=== PATIENT | female | born 1945 | race African-American/Black ===

== ENCOUNTER 2018-01-24 08:25 | Day surgery (SDC) | payer MEDICARE ==
[~2018-01-24] VITALS: Ht 165.1 cm; Wt 90.7 kg
--- NOTE | ~2018-01-24 | OP ---
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 OPERATION PERFORMED: Ligation of AV fistula and implantation of a new Acuseal AV graft and a rainbow pattern with the arterial anastomosis distal to the brachial artery or to the stump of the cephalic vein from the previous fistula and proximally to the arterialized median antebrachial vein. SURGEON: Robi Kruse MD ANESTHESIA: Regional nerve block plus general per [employer]. PREOPERATIVE NOTE: Ms. Martinez is a 72-year-old female on chronic hemodialysis in [place]. She has an enlarging aneurysmal radiocephalic AV fistula and was referred to me for management. She is brought to the operating room at this time with plans to implant a new early stick type Acuseal PTFE loop graft in her forearm and ligate or excise the fistula or aneurysm. Under anesthesia, the patient was positioned and prepped and draped in usual manner. I examined her with ultrasound and decided on a more or less bypass procedure. I made an incision over the arterial anastomosis and exposed the cephalic vein from the radial artery anastomosis to the neck of the aneurysm and dissected this portion of the vein fully and controlled it with a Silastic loop. I made another incision more proximally and exposed the arterialized median antebrachial vein above the endovascular stent which was present. It was dissected circumferentially and also controlled with a loop. I closed the vein just proximal to the stent using a TA 30 device with blue staple load and then transected it and then did an end-to-end anastomosis of the vein to Acuseal graft with running 6-0 Prolene and then flushed the graft and vein with heparinized saline, treated the suture line with BioGlue and then placed the graft in a tunnel lateral to the old fistula. With the fistula clamped off near the brachial artery, I used another application of the TA 30 device to close the neck of the aneurysm. I then transected the vein and did the second end-to-end vein to PTFE anastomosis with running 6-0 Prolene and also sealed that anastomosis with BioGlue. When I was complete, the occluding clamps and loops were released, excellent flow was established in the new fistula, which can be used tomorrow so long as Acuseal protocols follow. I aspirated blood with a syringe and 18-gauge needle from the aneurysm, which refilled slowly from collateral circulation. I considered exercising it at this time, but feel it would be better to postpone that at some point in the future few months from now if she wants, she can be taken back to the operating room and the thrombosed aneurysm removed with much less trauma and potential complications with her access. The patient's wounds were closed with interrupted inverted 3-0 Vicryl and OPERATIVE REPORT [id number] TIM MARTINEZ running intracuticular 4-0 Monocryl and sealed with Dermabond glue and dressed with Maxorb Ag, Tegaderm, and Cavilon skin prep. To keep some pressure on the aneurysm and keep it from filling perhaps quite so much, I placed a light compression bandage with Kerlix and Adaptic and I did this personally so as not to exert excessive compression and risk interfering flow in the graft. I have been assured that the dialysis unit in [place] is familiar with Acuseal graft and feels comfortable doing the first stick tomorrow and so the patient can be able to be discharged to home today. She will continue all of her home medications and the dressing will be removed tomorrow on dialysis. She should return to see me in about 2 weeks for followup visit in the office. Blood loss during the procedure was about 30 cc and was unreplaced. All sponges, instruments and needles were accounted for. No drain was used and no surgical specimen was submitted for histopathology. TRANSINT:[id number] Voice Confirmation ID: [id number] DOCUMENT ID: [id number] ROBI KRUSE MD at 1749 CC: MIAN PATTERSON MD [id number] DICTATION DATE: 01/24/18 1527 DUPLICATE MAKER: 01/24/18 1602 [facility] 01/24/18 [facility] [address] [place] [address]
[~2018-01-24 08:25] MED LIST: APRESOLINE25 MG PO; ASPIRIN325 MG PO; BYSTOLIC10 MG PO; CARDURA2 MG PO; CARDURA8 MG PO; HUMALOG 30100 UNITS/; HUMULIN R500 U/ML; LEVEMIR100 U/M1; MICRO-K10 MEQ PO; NEURONTIN 100100 MG PO; NORCO 5/325 TAB1 TA1 PO; NORVASC10 MG PO; PLAVIX75 MG PO; RENVELA800 MG PO; TYLENOL 325 MG325 MG PO; ZEMPLAR2 MCG PO; ZOCOR40 MG PO
[2018-01-24 09:08] LABS: CALCIUM 8.9 mg/dL (8.5-10.1); CARBON DIOXIDE 27.4 mmol/L (21.0-32.0); CREATININE - SERUM 4.7 mg/dL (0.6-1.3); POTASSIUM - SERUM 3.4 mmol/L (3.5-5.1)
[2018-01-24 09:32] LABS: HEMOGLOBIN 9.1 g/dL (12-16); LYMPHOCYTES 16.6 % (15-50); MCH 32.2 pg (26.0-34.0); MCHC 33.7 g/dL (31.0-37.0); MCV 95.4 fL (80.0-100.0); MEAN PLATELET VOLUME 10.9 fL (7.4-10.4); NEUTROPHILS 70.6 % (40-80); RBC 2.83 10x6/uL (4.00-5.40); RDW 13.7 % (11.5-14.5); WBC 5.4 10x3/uL (4.8-10.8)
[2018-01-24 09:39] LABS: PLATELET COUNT 145 10x3/uL (130-400)
[2018-01-24 09:41] LABS: APTT 31.5 SECONDS (22.8-39.4); INR 1.05 (0.85-1.17); PROTIME 13.3 SECONDS (11.6-15.0)
[2018-01-24 10:27] VITALS: BP 193/83; Ht 165.1 cm; Wt 90.7 kg
== END 2018-01-24 18:17 | disposition home or self-care (01) ==
LOC: D.OPS 08:25
PROVIDERS: Surgery
DX: T82.898A Other specified complication of vascular prosthetic devices, implants and grafts, initial encounter (principal); E11.22 Type 2 diabetes mellitus with diabetic chronic kidney disease; I12.0 Hypertensive chronic kidney disease with stage 5 chronic kidney disease or end stage renal disease; N18.6 End stage renal disease; Z99.2 Dependence on renal dialysis; E66.9 Obesity, unspecified; Z01.812 Encounter for preprocedural laboratory examination